=== PATIENT | female | born 1955 | race Two or more races ===

== ENCOUNTER 2017-10-30 08:43 | Emergency (ER) | payer OTHER ==
[~2017-10-30] VITALS: Ht 157.5 cm; Wt 68.0 kg
[~2017-10-30 08:43] MED LIST: GLIMEPIRIDE1 MG; HYZAAR 100/25 T1 TAB; METFORMIN HCL1000 MG
[2017-10-30] MEDS ORDERED: TOPROL XL50 M1 (09:03)
== END 2017-10-30 09:36 | disposition home or self-care (01) ==
LOC: ER 08:43
DX: S20.01XA Contusion of right breast, initial encounter (principal); V43.52XA Car driver injured in collision with other type car in traffic accident, initial encounter; Y93.89 Activity, other specified; Y92.488 Other paved roadways as the place of occurrence of the external cause; Y99.8 Other external cause status